=== PATIENT | female | born 1980 | race Caucasian/White ===

== ENCOUNTER 2018-12-28 18:44 | Emergency (ER) | payer SELFPAY ==
[~2018-12-28] VITALS: Ht 160 cm; Wt 68.0 kg
[2018-12-28] MEDS ORDERED: BACITRACIN ZINC OINT UDPKT TOP ONE (19:30)
[2018-12-28] MEDS ORDERED: IBUPROFEN 600MG TABLET PO ONE (19:30)
[2018-12-28 19:43] VITALS: BP 118/68
== END 2018-12-28 19:44 | disposition home or self-care (01) ==
LOC: ER 18:44
DX: S61.412D Laceration without foreign body of left hand, subsequent encounter (principal); X58.XXXD Exposure to other specified factors, subsequent encounter
CPT/HCPCS: 99281